=== PATIENT | female | born 1930 ===

== ENCOUNTER 2021-01-09 01:23 | Inpatient (IN) ==
[2021-01-09] MEDS ORDERED: NS 0.9% 1000 ml BAG 1,000 ML IV ONE (01:24)
[2021-01-09] MEDS ORDERED: Furosemide 40 mg/4 ml IV VIAL ONE (02:16)
[2021-01-09 02:21] LABS: Hematocrit 40 % (35-47); Mean Corpuscular HGB Conc 33 g/dL (31-36); Mean Corpuscular Hemoglobin 31 pg (27-31); Mean Corpuscular Volume 95 fL (80-97); Mean Platelet Volume 9.2 fL (7.4-10.4); Platelet Count 265 10^3/uL (150-450); Red Blood Count 4.15 10^6 /uL (3.70-4.87); Red Cell Distribution Width 14 % (10-15); White Blood Count 14.9 10^3/uL (3.5-10.8)
[2021-01-09 02:29] LABS: INR 1.16 (0.82-1.09)
[2021-01-09] MEDS: Furosemide 40 mg/4 ml IV VIAL IV SLOW PU ONE ×2 (02:29→02:53)
[2021-01-09 02:41] LABS: ALT 63 U/L (7-52); AST 98 U/L (13-39); Albumin 3.5 g/dL (3.2-5.2); Albumin/Globulin Ratio 0.9 (1-3); Alkaline Phosphatase 67 U/L (34-104); Anion Gap 12 mmol/L (2-11); BUN/Creatinine Ratio 21.3 (8-20); Blood Urea Nitrogen 19 mg/dL (6-24); CO2 Carbon Dioxide 22 mmol/L (22-32); Calcium 8.9 mg/dL (8.6-10.3); Chloride 98 mmol/L (101-111); EGFR African American 72.4 (>60); EGFR Non-African American 59.9 (>60); Globulin 3.7 g/dL (2-4); Glucose 186 mg/dL (70-100); Potassium 3.2 mmol/L (3.5-5.0); Sodium 132 mmol/L (135-145); Total Protein 7.2 g/dL (6.4-8.9)
[2021-01-09] MEDS ORDERED: Morphine 2 MG/ML SYRINGE ONE (02:41)
[2021-01-09 02:46] LABS: Troponin I 4.65 ng/mL (<0.03)
[2021-01-09] MEDS ORDERED: Furosemide 40 mg/4 ml IV VIAL IV SLOW PU ONE (02:48)
[2021-01-09 02:57] LABS: TSH Ultra Thyroid Stim Horm 11.04 mcIU/mL (0.34-5.60)
[2021-01-09] MEDS ORDERED: Morphine 2 MG/ML SYRINGE IV SCH (03:00)
[2021-01-09 03:14] LABS: ABS Basophils 0.1 10^3/ul (0-0.2); ABS Lymphocytes 4.8 10^3/ul (1.0-4.8); ABS Monocytes 1.6 10^3/ul (0-0.8); ABS Neutrophils 8.3 10^3/ul (1.5-7.7); Eosinophil % 0.2 %; Lymphocyte % 32.2 %
[2021-01-09] MEDS ORDERED: Iodixanol (CONTRAST) 320 MG/ML 100 ML SDV IV ONE (03:22)
[2021-01-09 05:04] LABS: Troponin I 10.56 ng/mL (<0.03)
[2021-01-09] MEDS ORDERED: Potassium Chlor 20 meq TAB.ER PO ONE ×2 (05:58→06:30)
[2021-01-09] MEDS: Heparin DRIP 25,000 UNITS BAG 25,000 UNITS/500 ML BAG IV SCH (06:27)
[2021-01-09] MEDS: Heparin 5000 UNITS/ML 1 mL VIAL IV SCH ×2 (06:27→13:25)
[2021-01-09] MEDS: Morphine 2 MG/ML SYRINGE IV ONE (07:07)
[2021-01-09 07:48] LABS: Urine Appearance Cloudy; Urine Bilirubin Negative (Negative); Urine Blood 2+ (Negative); Urine Color Yellow; Urine Glucose Negative (Negative); Urine Ketones Negative (Negative); Urine Nitrite Negative (Negative); Urine Protein Negative (Negative); Urine Specific Gravity 1.038 (1.010-1.030); Urine Urobilinogen Negative (Negative)
[2021-01-09 07:55] LABS: Urine Bacteria Absent (Absent); Urine Red Blood Cell 3+(>10/hpf) (Absent); Urine Squamous Epithelial Cell Present (Absent); Urine White Blood Cell 3+(>20/hpf) (Absent)
[2021-01-09] MEDS ORDERED: cefTRIAXone 1 gm/50 mL NS BAG 1 GM/50 ML BAG IVPB ONE (08:00)
[2021-01-09 08:04] LABS: Blood Urea Nitrogen 21 mg/dL (6-24); EGFR African American 56.7 (>60); EGFR Non-African American 46.9 (>60)
[2021-01-09] MEDS: Furosemide 20 mg/2 ml IV VIAL IV SLOW PU SCH ×2 (08:15→12:31)
[2021-01-09] MEDS: Famotidine IV 10 MG/ML 2 ml VIAL (20 mg) IV SLOW PU SCH ×2 (08:15→20:45)
[2021-01-09] MEDS: Morphine 2 MG/ML SYRINGE IV PRN ×3 (08:16→13:58)
[2021-01-09] MEDS: Potassium Chlor 20 meq TAB.ER PO SCH ×2 (08:16→10:13)
[2021-01-09 08:44] LABS: Hematocrit 43 % (35-47); Hemoglobin 14.4 g/dL (12.0-16.0); Mean Corpuscular HGB Conc 34 g/dL (31-36); Mean Corpuscular Hemoglobin 32 pg (27-31); Mean Corpuscular Volume 94 fL (80-97); Mean Platelet Volume 9.3 fL (7.4-10.4); Platelet Count 286 10^3/uL (150-450); Red Blood Count 4.51 10^6 /uL (3.70-4.87); Red Cell Distribution Width 14 % (10-15); White Blood Count 16.1 10^3/uL (3.5-10.8)
[2021-01-09] MEDS ORDERED: Perflutren Lipid Microsphere 3 ML VIAL ONE (08:52)
[2021-01-09 09:08] LABS: ABS Basophils 0.1 10^3/ul (0-0.2); ABS Lymphocytes 3.3 10^3/ul (1.0-4.8); ABS Monocytes 1.8 10^3/ul (0-0.8); ABS Neutrophils 10.9 10^3/ul (1.5-7.7); Lymphocyte % 20.3 %; Nucleated Red Blood Cells % 0.1
[2021-01-09] MEDS: DOXYcycline 100 MG in NS 0.9% 250 ml 250 ML IVPB SCH ×2 (09:26→20:45)
[2021-01-09 09:28] LABS: Potassium 4.4 mmol/L (3.5-5.0)
[2021-01-09 09:34] LABS: BUN/Creatinine Ratio 19.5 (8-20); EGFR Non-African American 45.4 (>60)
[2021-01-09 09:51] LABS: Troponin I 27.24 ng/mL (<0.03)
[2021-01-09] MEDS ORDERED: Acetaminophen IV 1 GM/100ML 1,000 MG/100 ML VIAL IVPB ONE (13:53)
[2021-01-09 18:46] LABS: Troponin I 38.58 ng/mL (<0.03)
[2021-01-09 22:13] LABS: Troponin I 38.94 ng/mL (<0.03)
[2021-01-09] MEDS ORDERED: fentaNYL 100 mcg/2 ml 50 MCG/ML VIAL ONE (22:47)
[2021-01-09] MEDS ORDERED: Magnesium Sulfate IV 0.5 GM/ML 2 ml VIAL (1 gm) ONE (22:50)
[2021-01-09] MEDS ORDERED: Nitro 2% OINT (Nitroglycerin) 1 INCH/PAK TOPICAL ONE ×2 (23:24)
[2021-01-09] MEDS ORDERED: Amiodarone 150 mg IVPREMIX 150 MG/100 ML BAG IV ONE (23:25)
[2021-01-09] MEDS ORDERED: Amiodarone 360 MG IVPREMIX 360 MG/200 ML BAG IV ONE (23:26)
[2021-01-09] MEDS ORDERED: Metoprolol Tartrate 5 mg VIAL 5 ml VIAL (1 mg/ml) IV ONE (23:27)
[2021-01-09] MEDS ORDERED: Amiodarone 360 MG IVPREMIX 0 MG/0 ML BAG IV ONE (23:29)
[2021-01-09] MEDS ORDERED: Amiodarone 150 mg IVPREMIX 0 MG/0 ML BAG IV ONE (23:30)
[2021-01-09] MEDS ORDERED: Furosemide 20 mg/2 ml IV VIAL IV SLOW PU ONE (23:38)
[2021-01-10] MEDS ORDERED: Nitro 2% OINT (Nitroglycerin) 1 INCH/PAK ONE (01:32)
[2021-01-10 01:56] LABS: Troponin I 36.41 ng/mL (<0.03)
[2021-01-10] MEDS ORDERED: Nitro 2% OINT (Nitroglycerin) 1 INCH/PAK TOPICAL ONE ×2 (03:45)
[2021-01-10 04:46] LABS: Hematocrit 37 % (35-47); Hemoglobin 12.4 g/dL (12.0-16.0); Mean Corpuscular HGB Conc 34 g/dL (31-36); Mean Corpuscular Hemoglobin 32 pg (27-31); Mean Corpuscular Volume 94 fL (80-97); Mean Platelet Volume 9.1 fL (7.4-10.4); Platelet Count 271 10^3/uL (150-450); Red Blood Count 3.93 10^6 /uL (3.70-4.87); Red Cell Distribution Width 14 % (10-15)
[2021-01-10 04:52] LABS: INR 1.3 (0.82-1.09)
[2021-01-10 05:01] LABS: Anion Gap 9 mmol/L (2-11); BUN/Creatinine Ratio 25.2 (8-20); Blood Urea Nitrogen 29 mg/dL (6-24); CO2 Carbon Dioxide 24 mmol/L (22-32); Calcium 8.3 mg/dL (8.6-10.3); Chloride 98 mmol/L (101-111); EGFR African American 53.9 (>60); EGFR Non-African American 44.5 (>60); Glucose 211 mg/dL (70-100); Magnesium 2.6 mg/dL (1.9-2.7); Phosphorus 4.2 mg/dL (2.5-5.0); Potassium 3.8 mmol/L (3.5-5.0); Sodium 131 mmol/L (135-145)
[2021-01-10 07:02] VITALS: BP 99/68
[2021-01-10] MEDS ORDERED: Nitro 2% OINT (Nitroglycerin) 1 INCH/PAK TOPICAL SCH (08:00)
[2021-01-10] MEDS ORDERED: cefTRIAXone 1 gm/50 mL NS BAG 1 GM/50 ML BAG IVPB SCH (08:30)
[2021-01-10] MEDS ORDERED: Morphine 2 MG/ML SYRINGE ONE ×3 (10:30→17:17)
[2021-01-10] MEDS: Morphine 2 MG/ML SYRINGE IV ONE (10:32)
[2021-01-10] MEDS: Heparin DRIP 25,000 UNITS BAG 25,000 UNITS/500 ML BAG IV SCH (10:37)
[2021-01-10] MEDS ORDERED: Morphine 2 MG/ML SYRINGE IV PRN ×2 (10:42→16:56)
[2021-01-10 11:05] LABS: Troponin I 51.61 ng/mL (<0.03)
[2021-01-10] MEDS: Famotidine IV 10 MG/ML 2 ml VIAL (20 mg) IV SLOW PU SCH (11:12)
[2021-01-10] MEDS: DOXYcycline 100 MG in NS 0.9% 250 ml 250 ML IVPB SCH (11:31)
[2021-01-10] MEDS ORDERED: Benzocaine/Menthol LOZ MT PRN (14:17)
[2021-01-10] MEDS ORDERED: Metoprolol Tartrate 5 mg VIAL 5 ml VIAL (1 mg/ml) IV PRN (16:45)
[2021-01-10] MEDS ORDERED: Lorazepam PYXIS KEY PRN (17:10)
[2021-01-10] MEDS ORDERED: LORazepam 2 mg VIAL 1 ml IV PUSH PRN (17:10)
[2021-01-10] MEDS ORDERED: Saliva Substitute (NF) 1 SPRAY BTL MT PRN (17:11)
[2021-01-10] MEDS: Morphine 2 MG/ML SYRINGE IV PRN ×3 (17:18→20:17)
[2021-01-10] MEDS ORDERED: LORazepam 2 mg VIAL 1 ml ONE (17:58)
[2021-01-10] MEDS ORDERED: Nitro Patch/OINT Remove PATCH TOPICAL SCH (18:00)
[2021-01-10] MEDS: LORazepam 2 mg VIAL 1 ml IV PUSH PRN ×2 (18:01→20:15)
[2021-01-10] MEDS ORDERED: levETIRAcetam 500 MG IVPREMIX 500 MG/100 ML BAG IV SCH (21:00)
== END 2021-01-10 21:44 | disposition expired ==
LOC: ED 01:23 → ICU 05:33
PROVIDERS: ADMIT Internal Medicine; ATTEND Internal Medicine